=== PATIENT | female | born 1960 | race Caucasian/White ===

== ENCOUNTER → 2023-02-14 13:39 | Outpatient (CLI) | payer BC, SELFPAY ==
--- NOTE | 2023-02-14 | DI.ECHO.S_ITS ---
[facility] +---------+ : : [address] : : : : [id number] : : : : Phone: [phone] +---------+ Echocardiogram Report + + :Name: RODNEY WHALEY Study Date: 02/14/2023 Height: 66 in : :[facility] ReadingLocation: Weight: 114 lb : : Gender: Female BSA: 1.6 m2 : :: 1960 Age: 63 yrs BP: 142/75 mmHg: :Reason For Study: LIGHTHEADEDNESS HR: 80 : :Ordering Physician: JONNIE, : :EDMUNDO Performed By: DARELL PATTEN : :Referring: EDMUNDO ABRAHAM : + + Interpretation Summary 1) Normal left ventricular thickness and size with low normal systolic function (EF 50-55%). 2) No significant valvular abnormalities. 3) No prior Echo available for comparison. Procedure: A two-dimensional transthoracic echocardiogram with color flow and Doppler was performed. The study quality was technically difficult. There is no prior echocardiogram noted for this patient. The patient was in a tachycardic rhythm during the exam. Left Ventricle: The left ventricle is normal in size and wall thickness. Left ventricular systolic function visually appears normal. The ejection fraction is estimated to be 50-55%. There are no focal wall motion abnormalities. Diastolic function could not be accurately assessed due to unobtainable data. Right Ventricle: The right ventricle is not well visualized. The right ventricle grossly appears normal in size with probable normal systolic function. Atria: The left atrium grossly appears normal in size. The right atrium grossly appears normal in size. There is no Doppler evidence for an interatrial shunt. Mitral Valve: The mitral valve is grossly normal. There is trace mitral regurgitation. Aortic Valve: The aortic valve is trileaflet. The aortic valve opens well. The aortic valve is slightly calcified. There is no aortic valve stenosis. No aortic regurgitation is present. Tricuspid Valve: The tricuspid valve is normal in structure and function. No tricuspid regurgitation. Pulmonary artery pressures cannot be estimated because of the lack of a measurable TR jet velocity. Pulmonic Valve: The pulmonic valve is not well seen, but is grossly normal. There is no pulmonic valvular regurgitation. Great Vessels: The aortic root is normal size. The ascending aorta is normal in size. The IVC is of normal diameter and collapses greater than 50% with a sniff. This suggests a low right atrial pressure of 3 mm Hg. Pericardium/ Pleura There is no pericardial effusion. There is no pleural effusion. MMode/2D Measurements & Calculations LVIDd: 3.7 cm LVOT diam: 1.8 cm LVIDs: 2.4 cm Ao root diam: 2.6 cm FS: 35.1 % IVSd: 0.60 cm LVPWd: 0.70 cm LV vera. diameter/BSA (cm/m^2): 2.3 LV sys. diameter/BSA (cm/m^2): 1.5 Doppler Measurements & Calculations Ao V2 max: 90.4 cm/sec LVOT Max Brian: 59.4 cm/sec Ao V2 mean: 61.3 cm/sec LV V1 max P.4 mmHg Ao max P.3 mmHg LV V1 VTI: 12.9 cm Ao mean P.0 mmHg ARMIN(I,D): 1.9 cm2 Ao V2 VTI: 17.5 cm ARMIN(V,D): 1.7 cm2 sev ratio: 0.74 ARMIN indexed to BSA (cm^2/m^2): 1.2 MV E max brian: 75.4 cm/sec PA pr(Accel): 31.3 mmHg MV A max brian: 54.4 cm/sec MV E/A: 1.4 Med Peak E' Brian: 12.6 cm/sec E/E' med: 6.0 Lat Peak E' Brian: 12.3 cm/sec E/E' lat: 6.1 E/e' average: 6.1 MV dec time: 0.21 sec SV(LVOT): 32.8 ml AV VR_phl: 0.66 ARMIN(VTI)/BSA_phl: 1.2 MV P1/2t-pr_phl: 61.0 msec Reading Physician:05:14 PM
--- NOTE | 2023-02-14 | DI.NM.S_ITS ---
PROCEDURE: NM EXERCISE TREADMILL NON NUC COMPARISON: None. INDICATIONS: LIGHTHEADEDNESS FINDINGS: The patient exercised for 6 minutes and 30 seconds reaching 91% of maximum predicted heart rate. Appropriate BP response to exercise (resting BP 118/70mmHg, max BP 158/80mmHg). Fair exercise tolerance (ILIR -2%). Rare PVCs during the study. No angina and no ST changes during exercise or recovery. IMPRESSION: Low risk, normal treadmill ECG only stress test with fair exercise tolerance (ILIR -2%). Dictated by: Mi Abraham MD on 02/14/2023 at 16:03 Approved by: Mi Abraham MD on 02/14/2023 at 16:05
== END ==
PROVIDERS: PCP Family Medicine; Referring Provider Internal Medicine Cardiovascular Disease; Visit Provider Internal Medicine Cardiovascular Disease
DX: F41.9 Anxiety disorder, unspecified (principal); R42 Dizziness and giddiness; I49.3 Ventricular premature depolarization; Z56.6 Other physical and mental strain related to work
CPT/HCPCS: 93017; 93306